=== PATIENT | female | born 1995 | race Caucasian/White ===

== ENCOUNTER → 2021-04-15 00:20 | Observation (INO) ==
[2021-04-14 21:19] VITALS: BP 144/83; PULSE 92; TEMP 98
[2021-04-14 21:39] LABS: Bacteria,Urine Few per hpf (None-Few); Bilirubin,Urine Negative (Negative); Blood,Urine Negative (Negative); Clarity,Urine Turbid (Clear); Color,Urine Light-Yellow (Yellow); Glucose,Urine (UA) Normal (Normal); Ketones,Urine Negative (Negative); Leukocyte Esterase,Urine Large (Negative); Mucus,Urine Few per lpf (None-Few); Nitrite,Urine Negative (Negative); PH,Urine 6.5 pH Units (5.0-8.0); Protein,Urine Negative (Neg-Trace); RBC,Urine 0-3 per hpf (0-3); Specific Gravity,Urine 1.013 (1.010-1.025); Squamous Epithelial Cell,Urine Moderate per hpf (None-Few); Urobilinogen,Urine Normal (Normal); WBC,Urine 15-30 per hpf (0-3)
== END | disposition home or self-care (01) ==
LOC: 1NENULAB
PROVIDERS: ADMIT Obstetrics & Gynecology; ATTEND Obstetrics & Gynecology

== ENCOUNTER 2021-04-19 04:56 | Inpatient (IN) ==
[2021-04-19] MEDS ORDERED: Azithromycin 500 MG in 0.9 % Sodium Chloride 250 ML IVPB PRN (05:43)
[2021-04-19] MEDS ORDERED: CeFAZolin Syr 3,000MG/30 ML 3,000 MG/30 ML SYRINGE IVPB ONE (05:43)
[2021-04-19] MEDS ORDERED: Famotidine 20 MG/2 ML VIAL IVP ONE (05:43)
[2021-04-19] MEDS ORDERED: Oxytocin 20 units/ LR 1000 mL 20 UNIT/1,000 ML BAG IVC ONE (05:43)
[2021-04-19] MEDS ORDERED: Ringers Solution, Lactated 1,000 ML IVC ONE (05:43)
[2021-04-19] MEDS ORDERED: Metoclopramide 10 MG/2 ML VIAL IVP ONE (05:43)
[2021-04-19] MEDS ORDERED: Oxytocin 20 units/ LR 1000 mL 20 UNIT/1,000 ML BAG IVC SCH (05:45)
[2021-04-19] MEDS ORDERED: Ringers Solution, Lactated 1,000 ML IVC SCH (05:45)
[2021-04-19] MEDS ORDERED: Ringers Solution, Lactated 1,000 ML ONE (06:01)
[2021-04-19 06:15] LABS: Amphetamine Screen,Urine Negative ng/mL (Cutoff=1000); Barbiturate Screen,Urine Negative ng/mL (Cutoff=200)
[2021-04-19 06:16] LABS: Benzodiazepines Screen,Urine Negative ng/mL (Cutoff=300); Cannabinoid Screen,Urine Negative ng/mL (Cutoff = 50); Cocaine Screen,Urine Negative ng/mL (Cutoff= 300); Opiate Screen,Urine Negative ng/mL (Cutoff=300); Phencyclidine Screen,Urine Negative ng/mL (Cutoff=25)
[2021-04-19 06:21] LABS: Hematocrit 39.1 % (35.3-44.9); Hemoglobin 13.3 g/dL (11.5-15.4); Mean Corpuscular Hemoglobin 30.1 pg (28.0-33.3); Mean Corpuscular Volume 88.5 fL (83.0-100.0); Red Blood Count 4.42 M/mcL (3.82-4.97); White Blood Count 9.7 K/mcL (4.3-11.1)
[2021-04-19 06:22] LABS: Basophils % 0.3 %; Eosinophils # 0.1 K/mcL (0.0-0.6); Eosinophils % 1.2 %; Immature Granulocytes % 0.9 % (0-4); Lymphocytes # 1.9 K/mcL (0.6-4.6); Lymphocytes % 19.4 %; Mean Platelet Volume 10.1 fL (9.4-12.4); Monocytes # 0.9 K/mcL (0.0-1.3); Monocytes % 9.1 %; Neutrophils # 6.7 K/mcL (1.6-8.9); Platelet Count 238 K/mcL (140-400); Red Cell Distribution Width 14.3 % (11.5-14.5); Segmented Neutrophils % 69.1 %
[2021-04-19 06:38] LABS: Alanine Aminotransferase 7 Units/L (7-52); Aspartate Amino Transferase 11 Units/L (13-39); BUN/Creatinine Ratio 11 (6-26); Blood Urea Nitrogen 8 mg/dL (6-20); Lactate Dehydrogenase 127 Units/L (140-271); Uric Acid 5.9 mg/dL (2.3-7.6); eGFR For African Americans > 60 (> 60); eGFR For Non-African Americans > 60 (> 60)
[2021-04-19 07:19] LABS: Influenza A PCR Negative (Negative); Influenza B PCR Negative (Negative); Resp. Syncytial Virus PCR Negative (Negative); SARS-CoV-2 by PCR (In House) Negative (Negative)
[2021-04-19] MEDS ORDERED: *HR* FentaNYL (PF) 100 MCG/2 ML VIAL IVP PRN ×2 (07:40→07:52)
[2021-04-19] MEDS ORDERED: *HR* Labetalol 20 MG/4 ML SYRINGE IVP PRN (07:40)
[2021-04-19] MEDS ORDERED: Promethazine 6.25 MG in Water for inj. (sterile) 20 ML IVPB PRN (07:40)
[2021-04-19] MEDS ORDERED: Naloxone 0.4 MG/ML INJ IVP PRN (07:40)
[2021-04-19] MEDS ORDERED: Ondansetron 4 MG/2 ML VIAL IVP PRN ×2 (07:40→13:29)
[2021-04-19] MEDS ORDERED: Rho Immune Globulin 1,500 UNIT SYRINGE IM ONE (13:29)
[2021-04-19] MEDS ORDERED: Metoclopramide 10 MG/2 ML VIAL IVP PRN (13:29)
[2021-04-19] MEDS ORDERED: Simethicone 80 MG TAB.CHEW PO PRN (13:29)
[2021-04-19] MEDS ORDERED: *HR* OxyCODONE Immed Rel 5 MG TABLET PO PRN (13:29)
[2021-04-19] MEDS: Ibuprofen 600 MG TABLET PO SCH ×2 (13:42→19:41)
[2021-04-19] MEDS: Acetaminophen 325 MG TABLET PO SCH ×2 (13:42→19:41)
[2021-04-19] MEDS: cephALEXin 500 MG CAPSULE PO SCH ×2 (15:07→19:41)
[2021-04-19] MEDS: metroNIDAZOLE 500 MG TABLET PO SCH ×2 (15:07→19:41)
[2021-04-19] MEDS: Oxytocin 20 units/ LR 1000 mL 20 UNIT/1,000 ML BAG IVC SCH (19:54)
[2021-04-20] MEDS: Acetaminophen 325 MG TABLET PO SCH ×4 (01:01→20:21)
[2021-04-20] MEDS: Ibuprofen 600 MG TABLET PO SCH ×4 (01:01→20:20)
[2021-04-20] MEDS: Oxytocin 20 units/ LR 1000 mL 20 UNIT/1,000 ML BAG IVC SCH (04:57)
[2021-04-20 05:18] LABS: Alanine Aminotransferase 7 Units/L (7-52); Aspartate Amino Transferase 26 Units/L (13-39); BUN/Creatinine Ratio 13 (6-26); Blood Urea Nitrogen 10 mg/dL (6-20); Lactate Dehydrogenase 339 Units/L (140-271); Uric Acid 6.3 mg/dL (2.3-7.6); eGFR For African Americans > 60 (> 60); eGFR For Non-African Americans > 60 (> 60)
[2021-04-20 07:11] LABS: Basophils # 0.1 K/mcL (0.0-0.2); Basophils % 0.5 %; Eosinophils # 0.2 K/mcL (0.0-0.6); Eosinophils % 1.9 %; Hematocrit 38.3 % (35.3-44.9); Hemoglobin 13.1 g/dL (11.5-15.4); Immature Granulocytes % 0.9 % (0-4); Lymphocytes # 1.8 K/mcL (0.6-4.6); Lymphocytes % 16.6 %; Mean Corpuscular HGB Conc 34.2 g/dL (31.6-35.5); Mean Corpuscular Hemoglobin 30.7 pg (28.0-33.3); Mean Corpuscular Volume 89.7 fL (83.0-100.0); Mean Platelet Volume 10.1 fL (9.4-12.4); Monocytes # 0.9 K/mcL (0.0-1.3); Monocytes % 8.5 %; Neutrophils # 7.6 K/mcL (1.6-8.9); Platelet Count 177 K/mcL (140-400); Red Blood Count 4.27 M/mcL (3.82-4.97); Red Cell Distribution Width 14.6 % (11.5-14.5); Segmented Neutrophils % 71.6 %; White Blood Count 10.5 K/mcL (4.3-11.1)
[2021-04-20] MEDS: metroNIDAZOLE 500 MG TABLET PO SCH ×3 (08:45→20:20)
[2021-04-20] MEDS: cephALEXin 500 MG CAPSULE PO SCH ×3 (08:46→20:20)
[2021-04-20] MEDS: Prenatal Vit/FA 1 EACH TABLET PO SCH (08:49)
[2021-04-20] MEDS ORDERED: Zonisamide 100 MG CAPSULE PO SCH ×2 (09:00→21:00)
[2021-04-21] MEDS: Acetaminophen 325 MG TABLET PO SCH ×2 (03:45→10:34)
[2021-04-21] MEDS: Ibuprofen 600 MG TABLET PO SCH ×2 (03:46→10:34)
[2021-04-21] MEDS: cephALEXin 500 MG CAPSULE PO SCH (07:43)
[2021-04-21] MEDS: Prenatal Vit/FA 1 EACH TABLET PO SCH (07:43)
[2021-04-21] MEDS: metroNIDAZOLE 500 MG TABLET PO SCH (07:43)
[2021-04-21 08:21] VITALS: BP 128/89; PULSE 79; TEMP 98; O2SAT 100
== END 2021-04-21 15:24 | disposition home or self-care (01) | DRG 540 ==
LOC: 1NENULAB 04:56 → 1NENUOBS 13:38
PROVIDERS: ADMIT Obstetrics & Gynecology; ATTEND Obstetrics & Gynecology